=== PATIENT | female | born 1945 | race Caucasian/White ===

== ENCOUNTER 2018-02-03 08:47 | Outpatient (CLI) | payer OTHER | END 2018-02-03 09:01 | disposition home or self-care (01) | LOC: NUCLEAR 08:47 | DX: I10 Essential (primary) hypertension (principal); G45.8 Other transient cerebral ischemic attacks and related syndromes; R00.2 Palpitations ==

== ENCOUNTER → 2018-02-03 | Outpatient (CLI) | payer OTHER ==
[~2018-02-03] MED LIST: ALPRAZOLAM0.025 GM; AMBIEN10 MG PO; BENADRYL50 MG/ML; CLONAZEPAM0.5 MG; COZAAR100 MG; FOLIC ACID1 MG; GABAPENTIN300 MG PO; HYDRALAZINE HCL50 MG; LEVOTHYROXINE SO1 GM; METFORMIN HYDRO25 GM; OMEPRAZOLE20 MG PO; PERCOCET 5/3251 TAB PO; SIMVASTATIN40 MG; SYNTHROID75 MCG PO; VALIUM PO; ZOLOFT25 MG
== END | disposition home or self-care (01) ==
LOC: TOM 07:45
DX: G45.8 Other transient cerebral ischemic attacks and related syndromes (principal); I10 Essential (primary) hypertension
CPT/HCPCS: 70460; Q9965

== ENCOUNTER 2018-06-27 11:08 | Emergency (ER) | payer OTHER ==
[~2018-06-27] VITALS: Ht 165.1 cm; Wt 83.0 kg
[2018-06-27] MEDS ORDERED: TIROSINT88 MCG (12:29)
[2018-06-27] MEDS ORDERED: ZOCOR40 MG (12:30)
== END 2018-06-27 14:22 | disposition home or self-care (01) ==
LOC: ER 11:08
DX: S82.092A Other fracture of left patella, initial encounter for closed fracture (principal); S92.351A Displaced fracture of fifth metatarsal bone, right foot, initial encounter for closed fracture; W01.198A Fall on same level from slipping, tripping and stumbling with subsequent striking against other object, initial encounter; Y93.89 Activity, other specified; Y92.89 Other specified places as the place of occurrence of the external cause; Y99.8 Other external cause status